=== PATIENT | female | born 1955 | race Caucasian/White ===

== ENCOUNTER 2016-07-08 20:04 | Observation (INO) | payer MEDICAID, OTHER ==
[~2016-07-08] VITALS: Ht 165.1 cm; Wt 110.9 kg
[~2016-07-08 20:04] MED LIST: BACL20TA PO; BPR150TCR PO; CITA40TA PO; EPIN0.3P2 IM; FLUT10.62 IH; NAPR500T PO; PRAM0.122 PO; PRAZ5CAP2 PO; ZOC20 PO; [UNRECOGNIZED DRUG - OTHER]
[2016-07-08 20:07] VITALS: BP 141/58; PULSE 77; RESP 21; O2SAT 94
--- NOTE | 2016-07-08 20:09 | ED.REPORT ---
HPI-Chest Pain 40 and Over Date of Service Jul 08, 2016 ED Provider: Daniel Chatman MD The patient is a 60 year old female with history of diastolic congestive heart failure, emphysema on Advair, stomach ulcers, and GERD, who presents to the emergency department by EMS for chest pain that began suddenly 2 hours ago after eating. The pain lasted for about 30 minutes. The pain was located to her epigastric region and radiated through to her back. She also experienced nausea and shortness of breath. She was given 324 mg aspirin by medics en route. Her pain has been intermittent since arriving to the emergency department. On the she was seen in the ED at [facility], diagnosed with a heart attack, and was transferred to [facility]. She had a cardiac catheterization and was told it was normal. She did not have any cardiac stents placed. Her current pain is not similar to when she was recently admitted. She is on 3L oxygen at home. Nursing Notes Stated Complaint: RESOLVED CHEST PAIN Chief Complaint: Chest Pain Nursing Notes Reviewed: Yes Allergies: Coded Allergies: Pentazocine Lactate (Verified Allergy, Severe, hallucinations and required paddles in surgery , 07/08/16) codeine (Verified Allergy, Severe, n&V, 07/08/16) meperidine HCl (Verified Allergy, Severe, n/v, 07/08/16) venom-honey bee (Verified Allergy, Unknown, 07/08/16) Scheduled Aspirin Chew (Aspirin Chew) 81 Mg Chew 81 MG PO QAM Baclofen (Baclofen) 10 Mg Tablet 10 MG PO BID Budesonide/Formoterol 160-4.5 mcg Inh (Symbicort 160-4.5 mcg Inh) 120 Puff Inhaler 2 PUFF INHALATION HS Citalopram (Citalopram) 40 Mg Tablet 40 MG PO QAM Fluticasone/Salmeterol (Advair 250-50 Diskus) 60 Puff/Inh Disk 1 PUFF IH BID Furosemide (Furosemide) 20 Mg Tab 20 MG PO QAM Hydralazine (Hydralazine) 10 Mg Tablet 10 MG PO TID Losartan Potassium (Losartan Potassium) 25 Mg Tablet 25 MG PO QAM Metoprolol Tartrate (Metoprolol Tartrate) 25 Mg Tablet 25 MG PO BID Pramipexole Dihydrochloride (Mirapex) 0.125 Mg Tablet 0.125 MG PO QAM Prednisone (PredniSONE) 10 Mg Tablet 10 MG PO QAM Simvastatin (Simvastatin) 40 Mg Tablet 40 MG PO HS Tiotropium [place] (Spiriva Respimat) 1.25 Mcg/Actuation Mist.inhal 5 MCG IH QAM Scheduled PRN Albuterol HFA (Proair HFA) 8.5 Gm Hfa.aer.ad 2 PUFFS INHALATION Q4H PRN PRN For Shortness of Breath Clotrimazole (Itch Relief) 1 % Cream..g. 1 APPLIC TP BID PRN PRN RASH/YEAST Diazepam (Diazepam) 5 Mg Tablet 5-10 MG PO HS PRN PRN INSOMNIA/ANXIETY Epinephrine (Epipen 2-Riley) 0.3 Mg/0.3 Ml Auto.injct 0.3 MG IJ DIRECTED PRN PRN For Anaphyllaxis Levalbuterol Tartrate (Xopenex Hfa) 15 Gm Hfa.aer.ad 2 PUFF IH Q6H PRN PRN For Shortness of Breath Nabumetone (Nabumetone) 750 Mg Tablet 750 MG PO BID PRN PRN For Pain General Time Seen by MD: 20:05 Chief Complaint Chest pain Hx Obtained From: Patient, EMS Arrived By: Ambulance Sudden in Onset?: Yes Onset Occurred: 1 - 4 hours ago Symptom Duration: Since onset Quality: Painful Radiation: : Back Migration/Movement: Reports: None Severity: Current: Mild Severity: Maximum: Moderate Recent Healthcare: Recent doctor visit, Recent hospitalization Similar Sx Previous: Yes Past Medical History Past Medical History Diastolic congestive heart failure Emphysema Recent admission for elevated troponin with a normal cardiac catheterization GERD Stomach ulcers Past Surgical History Cardiac catheterization Colon resection Bilateral knee replacements Hiatal hernia repair Lysis of adhesions Family History Noncontributory Social History Other Social History: Good social support, Local resident Ambulatory Status Independent Review of Systems Respiratory: Reports: Shortness of breath Cardiovascular: Reports: Chest pain GI: Reports: Nausea Musculoskeletal: Reports: Back pain Complete sys rev & neg: except as marked. Physical Exam Initial Vital Signs Vital Signs (First) Date Time Temp Pulse Resp B/P Pulse Ox O2 Delivery O2 Flow Rate FiO2 07/08/16 20:07 36.7 77 21 141/58 94 Nasal Cannula 2 Initial VS: Reviewed Head / Eyes: Atraumatic, Normocephalic, PERRL ENT: Mucous membranes moist, Conjunctiva normal, No scleral icterus Neck: Supple, Non-tender, Full range of motion Lymphatic: No lymphadenopathy Extremities: Vascular intact, Neuro intact Skin: Warm, Dry, No cyanosis Neurologic: Alert, Oriented, Nonfocal Psychiatric: Mood/affect normal, Behavior normal, Normal thought content General/Constitutional: Awake, Alert, Cooperative Respiratory / Chest: No respiratory distress, No chest tenderness, No chest wall deformity Poor air movement throughout both lung steward with prolonged expiratory phase. No crackles or focal findings. Abdomen: Soft, No guarding, No rebound, BS normoactive, No distention, No hernia, No palpable mass, No pulsatile mass Tenderness/Guarding/Rebound: Positive: Tender epigastric Lower Extremity / Pelvis / MS: No swelling, Non-tender, Neurologic intact, Vascular intact, No edema Bilateral well healed knee replacement scars. Interpretation & Diagnostics Lab Results Interpretation Result Diagram: 07/08/16202307/08/162023 Test 07/08/16 20:24 White Blood Count 15.0th/mm3 (3.8-10.1) Red Blood Count 3.93mil/mm3 (3.90-5.20) Hemoglobin 12.7g/dL (12.0-15.6) Hematocrit 39.2% (35.0-46.0) Mean Corpuscular Volume 99.7fL (81-100) Mean Corpuscular Hemoglobin 32.3pg (27.0-35.0) Mean Corpuscular Hemoglobin Concent 32.4% (32.0-37.0) Red Cell Distribution Width 13.6% (12.3-15.4) Platelet Count 259bil/L (150-400) Neutrophils (%) (Auto) 72.6% (40-74) Lymphocytes (%) (Auto) 21.3% (14-46) Monocytes (%) (Auto) 5.1% (4-12) Eosinophils (%) (Auto) 0.4% (0-5) Basophils (%) (Auto) 0.1% (0-3) Sodium Level 136mEq/L (134-144) Potassium Level 3.9mEq/L (3.5-5.2) Chloride Level 97mEq/L (97-108) Carbon Dioxide Level 24mmol/L (18-29) Blood Urea Nitrogen 26mg/dL (8-27) Creatinine 1.27mg/dL (0.57-1.00) Estimat Glomerular Filtration Rate 61mL/min (>59) Glucose Level 125mg/dL (60-99) Calcium Level 9.4mg/dL (8.5-10.1) Magnesium Level 2.2mg/dL (1.6-2.6) Total Bilirubin 0.4mg/dL (0.0-1.2) Aspartate Amino Transf (AST/SGOT) 20U/L (0-50) Alanine Aminotransferase (ALT/SGPT) 25U/L (0-32) Alkaline Phosphatase 55U/L (25-165) Troponin T 0.010ug/L (0.0-0.011) Pro-B-Type Natriuretic Peptide 155.4pg/mL (0-287) Total Protein 6.9g/dL (6.4-8.4) Albumin 3.9g/dL (3.4-5.0) Procalcitonin 0.05ng/mL (0.00-0.08) Hold Braden Top Tube Received (Received) ECG Interpretation ECG Interpretation: Sinus rhythm with a rate of 76 bpm Normal axis Normal intervals Inferior Q waves present No acute ST changes No acute T wave abnormalities No previous EKGs available for comparison Time: 20:05 Interpreted by: ED physician X-Ray Chest Interpretation Chest Xray Interpretation: IMPRESSION: Normal for age. Source of chest pain is not seen. Dictated by: Donavon Kimbrough M.D. on 07/08/2016 at 20:32 Interpretation / Wet Read by: Interpret - Radiologist Re-Eval/Medical Decision Med Decision/Clinical Course The patient is a 60 year old female with history of diastolic congestive heart failure, emphysema on Advair, stomach ulcers, and GERD, who presents to the emergency department by EMS for chest pain that began suddenly 2 hours ago after eating. The pain lasted for about 30 minutes. The pain was located to her epigastric region and radiated through to her back. She also experienced nausea and shortness of breath. She was given 324 mg aspirin by medics en route. Her pain has been intermittent since arriving to the emergency department. On the she was seen in the ED at [facility], diagnosed with a "heart attack", and was transferred to [facility]. She had a cardiac catheterization and was told it was "normal". She did not have any cardiac stents placed. Her current pain is not similar to when she was recently admitted. She is on 3L oxygen at home at night. Upon arrival to the emergency department the patient is afebrile and hemodynamically stable. She reported active chest pain which resolved after being given supplemental nitroglycerin. Initial EKG was obtained and interpreted by myself as documented above. CXR: Obtained, reviewed and interpreted by myself shows no evidence of infiltrates, effusions or pneumothorax. Cardiac and mediastinal silhouette normal. No bony or soft tissue abnormalities. Initial troponin was negative and CBC was notable only for leukocytosis of 15. CMP was unremarkable. Multiple attempts were made to obtain records from [facility] however records were not sent. I was unable to verify findings of the patient's cardiac catheterization. That being said she is relatively high risk for cardiac standpoint and her chest pain did resolve with nitroglycerin further raising some concern that this may be cardiac in etiology. Additionally, she has poor air movement throughout both lung steward with quite a bit of wheezing. I gave him 40 mg of oral prednisone as well as 2 DuoNeb treatments. She was ambulated thereafter on pulse oximetry and had desaturation into the mid to high 80s. Overall presentation not suggestive of pulmonary embolism. She is without tachycardia, pleuritic chest pain. Given findings on auscultation of her lungs my suspicion that this represents PE is very low. Patient was admitted to the hospitalist service for management of her COPD exacerbation and further ACS rule out. We will continue to obtain her records from [facility]. Source of Hx: Old records, EMS Time of Eval: 21:00 Re-Evaluation/Progress Note: The patient was at 94 % on room air. After walking for 2 minutes on room air her sats dropped to a low of 88. Will admit the patient. Consultation : Referral / Consult Name: Yonathan Rodney MD Consulted With: Hospitalist Requested Call at: 22:01 Call Returned at: 22:16 Package Handler: Will see patient, Agrees with eval, Agrees with plan, Accepts admit Counseled Regarding: Diagnosis, Lab results, Need for admission Discharge & Departure Primary Impression: Chest pain Chest pain type: unspecified Qualified Code: R07.9 - Chest pain, unspecified Additional Impressions: COPD exacerbation Hypoxia Disposition: ADMITTED TO HOSPITAL Discharge Condition All VS Reviewed: Yes Condition: Stable Referrals: Ralph Mccann MD (PCP) Munaibrosa elena Attestation Portions of this note were transcribed by Melissa Figueroa. I, Dr. Chatman personally performed the history, physical exam and medical decision-making; I reviewed and confirmed the accuracy of the information in the transcribed note. Signed by: Leonel Pérez, 07/08/2016 at 2240. copies to: Ralph Mccann MD, Beck O MD Jul 08, 2016 20:09 Melissa Figueroa Jul 08, 2016 20:14
--- NOTE | 2016-07-08 20:33 | DRSVH ---
PROCEDURE: X-RAY CHEST ONE VIEW, PORTABLE ([id number]) INDICATIONS: CHEST PAIN RESOLVED TECHNIQUE: One view of the chest was acquired. COMPARISON: None. FINDINGS: Surgical changes and devices: None. Lungs and pleura: No pleural effusions or pneumothorax. Lungs are clear. Mediastinum: Mediastinal contours appear normal. Heart size is normal. Bones and chest wall: No suspicious bony lesions. Overlying soft tissues appear unremarkable. IMPRESSION: Normal for age. Source of chest pain is not seen. Dictated by: Donavon Kimbrough M.D. on 07/08/2016 at 20:32 Approved by: Donavon Kimbrough M.D. on 07/08/2016 at 20:32
[2016-07-08 20:39] LABS: BASOPHILS % (AUTO) 0.1 % (0-3); EOSINOPHILS % (AUTO) 0.4 % (0-5); MONOCYTES % (AUTO) 5.1 % (4-12); Mean Corpuscular Hemoglobin 32.3 pg (27.0-35.0); Mean Corpuscular Volume 99.7 fL (81-100); NEUTROPHILS % (AUTO) 72.6 % (40-74); Platelet Count 259 bil/L (150-400)
[2016-07-08] MEDS ORDERED: Albuterol-Ipratropium 3 mL Inhalation Solution NEB ONE (20:50)
[2016-07-08] MEDS ORDERED: predniSONE 20 mg Tablet PO ONE (20:50)
[2016-07-08 20:59] LABS: TROPONIN T 0.01 ug/L (0.0-0.011)
[2016-07-08 21:10] LABS: Magnesium 2.2 mg/dL (1.6-2.6)
[2016-07-08] MEDS ORDERED: Ondansetron 2 mg/mL 2 mL Inj ONE (21:21)
[2016-07-08 21:25] VITALS: BP 109/41; PULSE 80; RESP 20; O2SAT 94
[2016-07-08 21:42] VITALS: PULSE 74; RESP 22; O2SAT 94
[2016-07-08] MEDS ORDERED: Alum-Mag Hydrox-Simeth 30 mL Suspension PO PRN (22:00)
[2016-07-08] MEDS ORDERED: Ondansetron 2 mg/mL 2 mL Inj IVPUSH PRN ×2 (22:00→22:55)
[2016-07-08 22:03] VITALS: BP 127/61; PULSE 74; RESP 22; O2SAT 92
[2016-07-08] MEDS ORDERED: SIMV20TA4 PO (22:52)
[2016-07-08] MEDS ORDERED: EPIN0.3P2 IJ (22:52)
[2016-07-08] MEDS ORDERED: BACL20TA PO (22:52)
[2016-07-08] MEDS ORDERED: CITA40TA13 PO (22:52)
[2016-07-08] MEDS ORDERED: Polyethylene Glycol (PEG) 17 Gm Powder PO PRN (22:55)
[2016-07-08] MEDS ORDERED: DIAZ5TAB3 PO (23:04)
[2016-07-08] MEDS ORDERED: ADV250INH IH (23:04)
[2016-07-08] MEDS ORDERED: TRAM50TA2 PO (23:04)
[2016-07-08] MEDS ORDERED: BACL10TA PO (23:04)
[2016-07-08] MEDS ORDERED: FUR20 PO (23:04)
[2016-07-08] MEDS ORDERED: TIOT18CA3 IH (23:04)
[2016-07-08] MEDS ORDERED: LOSA25TA21 PO (23:04)
[2016-07-08] MEDS ORDERED: PRAM0.122 PO (23:04)
[2016-07-08] MEDS ORDERED: CLOT15CR66 TP (23:04)
[2016-07-08] MEDS ORDERED: ASPI325T32 PO (23:04)
[2016-07-08] MEDS ORDERED: AMIT10TA6 PO (23:04)
[2016-07-08] MEDS ORDERED: ALBU8.5H2 INHALATION (23:04)
[2016-07-08 23:09] VITALS: BP 126/47; PULSE 71; RESP 24; O2SAT 93
[2016-07-08] MEDS ORDERED: ASPI81TA3 PO (23:15)
[2016-07-08] MEDS ORDERED: SYMINH INHALATION (23:17)
[2016-07-08] MEDS ORDERED: LEVA15HF5 IH (23:17)
[2016-07-08] MEDS ORDERED: METO25TA6 PO (23:20)
[2016-07-08] MEDS ORDERED: PRE10 PO (23:20)
[2016-07-08] MEDS ORDERED: HYDR-3938 PO (23:20)
[2016-07-08] MEDS ORDERED: SIMV40TA5 PO (23:21)
[2016-07-08] MEDS ORDERED: TIOT4MIS5 IH (23:22)
[2016-07-08] MEDS ORDERED: NABU750T PO (23:23)
[2016-07-08] MEDS ORDERED: [UNRECOGNIZED DRUG - OTHER] (23:26)
[2016-07-08 23:41] VITALS: PULSE 63
[2016-07-08] MEDS: 0.9% Sodium Chloride 1,000 ML IV SCH (23:54)
[2016-07-08] MEDS: Heparin 5,000 Unit/mL Inj SUBQ SCH (23:54)
[2016-07-09] VITALS (9 sets, daily range): BP systolic 144–162; BP diastolic 60–71; PULSE 57–71; RESP 18–20; O2SAT 92–97
--- NOTE | 2016-07-09 00:05 | NUR ---
Admission Note Pt admitted to [facility] from ER on stretcher at 2335, alert and orientedx3, pleasant, pt states chest pain resolved, denies cough/N/V/fever/chills/any pain. Stood up and ambulated to bed on arrival, SOB with activities,breathing fine when lying in bed per pt. gait steady,denies dizziness,vertigo. Moderately decreased lung sounds bilaterally, no wheezes or crackles noted. HR regular, no murmur, Tele: SR 62 per central processing technician. Abdomen soft, non tender, slightly hypoactive BT, no edema at all extremities. IV place at ER occluded, new IV placed by charge nurse. NS 100ml running, call light oriented to pt, NPO informed for possible stress test or procedure (unknown yet), pt informed to let RN know immediately should chest pain/discomfort occur. Care ongoing. BP 162/72 RR24, SPO2 96% on O2 2l per nc, MP30 for monitoring SPO2.
--- NOTE | 2016-07-09 02:31 | PCM.HPMED ---
Subjective Date of Service Jul 08, 2016 Primary Provider: Admitting Physician: Yonathan Rodney MD Primary Care Physician: Ralph Mccann MD Attending Physician: Yonathan Rodney MD Admit Status: From the Emergency Department Chief Complaint: Chest pain History of Present Illness: Patient is a 60-year-old female and current smoker with a history of emphysema, diastolic CHF, GERD, gastric ulcers and recent admission to [facility] in [place] for elevated troponin with a normal cardiac catheterization who presented to the ED via EMS with the complaint of sudden and severe substernal/ epigastric chest pain that occurred at rest approximately 2 hours after dinner and radiated to her back. She states that she took some of her omeprazole without relief and when the pain persistent for more than 30minutes she called 911. Associated symptoms include nausea, one episode of vomiting, shortness of breath, and dizziness. She states that her pain was similar to the pain she experienced prior to her admission to [facility] last month but was much more severe. She endorses the diagnosis of NSTEMI on 06/25/16 that resulted in transfer from [facility] to [facility] where she underwent a cardiac catheterization. She states that she developed a hematoma at the cath sight but reports she was told the cardiac cath was negative and no stents were placed. She continues to smoke daily but is trying to cut back. Of note, she reports a persistent and productive cough for the past several weeks for which she was started on oral prednisone and a Z-pack as an outpatient but has not yet completed. In the ED, vitals were temperature of 36.7C, BP 141/58, HR 77, RR 21, SpO2 94% on 2L nasal cannula. Labs significant for troponin negative x1, proBNP 155.4, leukocytosis with a WBC of 15.0, Hgb/Hct 12.7/39.2, sodium 136, potassium 3.9, chloride 97, bicarb 24, BUN 26, creatinine 1.27, serum glucose 125, magnesium 2.2, and negative procalcitonin. EKG showing sinus rhythm w/ rate of 76, no acute ST changes. Chest xray without acute cardiopulmonary process. She received 324mg of aspirin, 40mg of oral prednisone and SL nitro x1. Review of Systems: A comprehensive review of systems was conducted with the patient and found to be negative except as above in the History of Present Illness. Allergies Coded Allergies: Pentazocine Lactate (Verified Allergy, Severe, hallucinations and required paddles in surgery , 07/08/16) codeine (Verified Allergy, Severe, n&V, 07/08/16) meperidine HCl (Verified Allergy, Severe, n/v, 07/08/16) venom-honey bee (Verified Allergy, Unknown, 07/08/16) Home Medications Aspirin Chew 81 MG PO QAM Baclofen 10 MG PO BID Budesonide/Formoterol 160-4.5 mcg Inh (2 PUFF INHALATION HS Citalopram 40 MG PO QAM Fluticasone/Salmeterol 1 PUFF IH BID Furosemide 20 MG PO QAM Hydralazine 10 MG PO TID Losartan Potassium 25 MG PO QAM Metoprolol Tartrate (25 MG PO BID Pramipexole Dihydrochloride 0.125 MG PO QAM Hextcktpkg75 MG PO QAM Simvastatin ( 40 MG PO HS Tiotropium [place] (5 MCG IH QAM Scheduled PRN Albuterol HFA 2 PUFFS INHALATION Q4H PRN For Shortness of Breath Clotrimazole 1 APPLIC TP BID PRN RASH/YEAST Diazepam 5-10 MG PO HS PRN INSOMNIA/ANXIETY Epinephrine 0.3 MG IJ DIRECTED PRN PRN For Anaphyllaxis Levalbuterol Tartrate 2 PUFF IH Q6H PRN For Shortness of Breath Nabumetone 750 MG PO BID PRN For Pain PMH Diastolic congestive heart failure Emphysema Recent admission for elevated troponin with a normal cardiac catheterization Hyperlipidemia GERD Gastric ulcers Sleep apnea Osteoporosis Depression Colon polyps Surgical History Cardiac catheterization Colon resection Abdominal hernia repair Knee surgery w/ donor bone and hardware Abdominal surgeries from [facility], 1974, 76, 76 Bilateral knee replacement Left breast biopsy-benign Lysis of adhesions Hardware removal from knee Family History No family hx of heart disease, colon cancer. Mother- breast cancer Uncle- leukemia, stroke Social History Hx Alcohol Use: No Hx Substance Use: No Hx Tobacco Use: Yes (1ppd 40yrs currently endorses 5 cig/day) Smoking Status: Current Every Day Smoker Living Arrangement: with Family Exam Vital Signs Vital Sign - Last Date Time Temp Pulse Resp B/P Pulse Ox O2 Delivery O2 Flow Rate FiO2 07/08/16 23:09 71 24 126/47 93 Room Air 07/08/16 22:03 2 07/08/16 20:07 36.7 Exam General: Obese, female propped up in bed in no acute distress, appropriately interactive HEENT: Normocephalic, atraumatic. PERRLA, moist mucosa. no scleral icterus. Neck: No JVD or bruits. No lymphadenopathy or thyromegaly. Cardiovascular: RRR with no murmurs, rubs, or gallops. Pulmonary: Poor respiratory effort, breath sounds diminished bilaterally but grossly clear to auscultation with no crackles, wheezes, or rhonchi. Abdomen: Bowel tones present. Soft, obese, nontender, nondistended. No hepatosplenomegaly or masses appreciated. Extremities: Tenderness to palpation at left femoral cath site w/firm nodule, fading ecchymosis. No clubbing, cyanosis, or edema. Skin: Normal temperature, turgor, and texture; no rash, or ulcerations. Neurological: CN II-XII grossly intact. No focal deficits. Normal muscle strength, tone, and bulk. Psychiatric: Alert and oriented x3. Normal mood and affect. Lab and Diagnostics Labs Laboratory Tests Test 07/08/16 20:24 White Blood Count 15.0th/mm3 (3.8-10.1) Red Blood Count 3.93mil/mm3 (3.90-5.20) Hemoglobin 12.7g/dL (12.0-15.6) Hematocrit 39.2% (35.0-46.0) Mean Corpuscular Volume 99.7fL (81-100) Mean Corpuscular Hemoglobin 32.3pg (27.0-35.0) Mean Corpuscular Hemoglobin Concent 32.4% (32.0-37.0) Red Cell Distribution Width 13.6% (12.3-15.4) Platelet Count 259bil/L (150-400) Neutrophils (%) (Auto) 72.6% (40-74) Lymphocytes (%) (Auto) 21.3% (14-46) Monocytes (%) (Auto) 5.1% (4-12) Eosinophils (%) (Auto) 0.4% (0-5) Basophils (%) (Auto) 0.1% (0-3) Sodium Level 136mEq/L (134-144) Potassium Level 3.9mEq/L (3.5-5.2) Chloride Level 97mEq/L (97-108) Carbon Dioxide Level 24mmol/L (18-29) Blood Urea Nitrogen 26mg/dL (8-27) Creatinine 1.27mg/dL (0.57-1.00) Estimat Glomerular Filtration Rate 61mL/min (>59) Glucose Level 125mg/dL (60-99) Calcium Level 9.4mg/dL (8.5-10.1) Magnesium Level 2.2mg/dL (1.6-2.6) Total Bilirubin 0.4mg/dL (0.0-1.2) Aspartate Amino Transf (AST/SGOT) 20U/L (0-50) Alanine Aminotransferase (ALT/SGPT) 25U/L (0-32) Alkaline Phosphatase 55U/L (25-165) Troponin T 0.010ug/L (0.0-0.011) Pro-B-Type Natriuretic Peptide 155.4pg/mL (0-287) Total Protein 6.9g/dL (6.4-8.4) Albumin 3.9g/dL (3.4-5.0) Procalcitonin 0.05ng/mL (0.00-0.08) Hold Braden Top Tube Received (Received) Result Diagram: 07/08/16202307/08/162023 X-Rays, CTs and MRIs X-RAY CHEST ONE VIEW, PORTABLE (Dictated by: Donavon Kimbrough M.D. on 07/08/2016 at 20:32) FINDINGS: -Surgical changes and devices: None. -Lungs and pleura: No pleural effusions or pneumothorax. Lungs are clear. -Mediastinum: Mediastinal contours appear normal. Heart size is normal. -Bones and chest wall: No suspicious bony lesions. Overlying soft tissues appear unremarkable. IMPRESSION: Normal for age. Source of chest pain is not seen. Approved by: Donavon Kimbrough M.D. on 07/08/2016 at 20:32 Assessment & Plan 60 y/o female with a history of emphysema, diastolic CHF, GERD, gastric ulcers and recent admission to [facility] in [place] for elevated troponin with a normal cardiac catheterization who presented to the ED via EMS with the complaint of sudden and severe substernal/epigastric chest pain that occurred at rest approximately 2 hours after dinner and radiated to her back. Admitted for evaluation of chest pain and probable COPD exacerbation. 1. Chest pain, r/o ACS, present on admission. Active. -Pt reports hx of recent NSTEMI with negative cath and hospital admission to [facility] in [place]. -EKG showing sinus rhythm w/ rate of 76, no acute ST changes. Chest xray without acute cardiopulmonary process -Troponin negative x1 -in ED: s/p SL nitro x1, oral aspirin 325mg -admitted to [facility] with telemetry -continue statin, aspirin -metoprolol held for possible cardiac stress test in am -SL nitro prn and IV morphine prn as long as BP tolerates -Trend troponin q6h -NPO for possible procedures 2. Probable COPD exacerbation, present on admission. Active. -Pt 40 pack-year smoking history, current every day smoker. Reports diagnosis of emphysema, on triple-inhaler therapy and 3L home O2 at night. Recent outpatient evaluation for URI w/ active oral prednisone and Z-pack. -Tachypneic and hypoxic in the ED with O2 sats dropping into the low 80s with ambulation. CXR w/o focal consolidation or obvious acute process. -Afebrile, WBC 15.0 w/o a left shift, procalcitonin negative -in ED: s/p dose of rocephin/ azithromycin and oral prednisone -Duonebs q4h, albuterol q2h prn -Prednisone 40mg PO daily x5 days -Continue supplemental O2, maintain sats 88-92% -Will hold antibiotics and repeat CBC, procalcitonin in the am -Sputum culture ordered 3. Hx of NSTEMI, present on admission. Active. -Pt reports recent admission to [facility] in [place] for elevated troponin with a normal cardiac catheterization. -Day team to follow up with outside records, [facility] -continue home aspirin, statin, losartan, hydralazine -held metoprolol for possible stress test in am 4. Chronic GERD, present on admission. Presumed stable. -hx of gastric ulcers 5. Hx of diastolic CHF, present on admission. Presumed stable. -Clinically does not appear hypervolemic, no signs/symptoms of acute exacerbation. -Echocardiogram ordered -Continue home furosemide -Metoprolol held, as above. -Day team to resume when appropriate 6. Chronic hypertension, present on admission. Presumed stable. - BP 141/58 - continue home meds, as above. 7. Hx of depression and anxiety, present on admission. Presumed stable. -continue home citalopram 8. Chronic hyperlipidemia, present on admission. Presumed stable. - continue home statin FEN: NPO for possible procedures, IVFs- NS at 100mls/hr. GI Prophylaxis: not indicated, will continue home omeprazole for chronic GERD DVT Prophylaxis: Sub-q Heparin, 5,000units Q8h PRN: Acetaminophen-fever/headache/mild/moderate pain Antiemetics, as needed Bowel regimen, as needed. Disposition: Patient admitted under inpatient status with expected length of stay > 2 midnights for severity of present symptoms, complexities of treatment plan and risk for adverse event. Pain Evaluation: Adequate Pain Control VTE Prophylaxis Indicated: Meets Criteria for Anticoag Therapy VTE Prophylaxis: Sub-Q Heparin (Unfractionated) Resuscitation Status: CPR: Attempt Resuscitation Attending Statement The patient was seen and examined together with Dr. Fleming on 07/08/2016 and I have added additional information to the note above. General: No acute distress. Awake, alert. Head: Normocephalic, atraumatic. Eyes: White sclera. Conjunctiva non-injected. Mouth & Throat: No Bleeding. No erythema, lesions, exudates visualized. Neck: No tender adenopathy. Trachea midline. Respiratory: dec breath sounds with mild exp wheeze b/l. moving air all lung steward. Cardiovascular: S1, S2. Regular rate and rhythm without murmurs, rubs or gallops. Pulses 2+ equal bilaterally. Abdomen: Normal bowel sounds x4 quadrants. Soft, non-tender, non-distended. Extremities: Intact. no joint effusions. no lower extremity tenderness, swelling , erythema or increased warmth. Skin: Intact, no lesions, no rash. Neurologic: Awake, alert, oriented x3. No focal deficits. Psychiatric: Appropriate mood and affect. Cooperative. chest pain chest pain free now. serial troponins, ekg. echocardiogram. may need to f/u with cardiology in am, obtain recent records. copd exacerbation. diminished breath sounds with minimal exp wheeze. breathing rx, steroids. cont to monitor. Debra Fleming DO Jul 08, 2016 23:20 Yonathan Rodney MD Jul 09, 2016 02:37
--- NOTE | 2016-07-09 04:20 | NUR ---
Code Status DNR/DNI DNR/DNI verified with pt, night resident [place] notified.
--- NOTE | 2016-07-09 07:11 | NUR ---
O2 Titration Pt COPD with home O2 2l in day,3l overnight for 5 years per pt. Titrate O2 from 2 to 1 L per oxymask with carefully monitoring O2 level via MP30, SPO2 remains 96-97% with titration, pt SOB stable,alert and orientedx3.
[2016-07-09 07:12] LABS: BASOPHILS % (AUTO) 0.1 % (0-3); EOSINOPHILS % (AUTO) 0 % (0-5); MONOCYTES % (AUTO) 2.2 % (4-12); Mean Corpuscular Hemoglobin 32.7 pg (27.0-35.0); Mean Corpuscular Volume 99.7 fL (81-100); NEUTROPHILS % (AUTO) 85.4 % (40-74); Platelet Count 219 bil/L (150-400)
[2016-07-09] MEDS: Albuterol-Ipratropium 3 mL Inhalation Solution NEB SCH ×3 (07:47→16:20)
[2016-07-09] MEDS ORDERED: Fluticasone-Salmeterol 500-50 Inhaler INHALATION SCH (08:30)
[2016-07-09] MEDS ORDERED: predniSONE 20 mg Tablet PO SCH (08:30)
[2016-07-09] MEDS: 0.9% Sodium Chloride 1,000 ML IV SCH (08:52)
[2016-07-09] MEDS: Heparin 5,000 Unit/mL Inj SUBQ SCH ×2 (09:33→16:30)
--- NOTE | 2016-07-09 10:07 | DRSVH ---
PROCEDURE: X-RAY CHEST, TWO VIEWS ([id number]) INDICATIONS: Hypoxia TECHNIQUE: 2 views of the chest were acquired. COMPARISON: [facility], CR, XR CHEST 1VW (PORTABLE), 07/08/2016, 20:03. FINDINGS: Surgical changes and devices: None. Lungs and pleura: There is diffuse interstitial prominence. There is a small right pleural effusion. Mediastinum: Mediastinal contours are normal. Heart size is normal. Bones and chest wall: No suspicious bony abnormalities. Soft tissues appear unremarkable. IMPRESSION: 1. Interstitial prominence and small right pleural effusion suggesting fluid overload. Dictated by: Syeda Lara M.D. on 07/09/2016 at 10:05 Approved by: Syeda Lara M.D. on 07/09/2016 at 10:06
--- NOTE | 2016-07-09 11:48 | NUR ---
Social Work: Screening Data: pt is a 60 y/o female admitted for CP/CPOD exacerbation. Pt's PCP is Dr Mccann, pt's insurance is [employer] and [facility]. EMR reviewed, no readmit score listed. No d/c planning needs anticipated at this time. MULE SPINNER will continue to follow if needs arise. Assessment: Pt who is independent at baseline. Plan: Pt will d/c home via POV when medically stable. No d/c planning needs anticipated at this time. MULE SPINNER will continue to follow if needs arise. CLAUDINE Merrill
--- NOTE | 2016-07-09 14:42 | NUR ---
Social Work: Discharge Data: Pt is on day 1 of hospitalization. EMR reviewed. D/C orders are in. No d/c planning needs anticipated at this time. SALES AND SERVICE SPECIALIST will continue to follow if needs arise. Assessment: Pt who is independent at baseline. Plan: Pt will d/c home via POV today. No d/c planning needs anticipated at this time. SALES AND SERVICE SPECIALIST will continue to follow if needs arise. CLAUDINE Merrill
--- NOTE | 2016-07-09 14:46 | PCM.DIMED ---
Discharge Instructions Date of Service Jul 09, 2016 Dates of Hospitalization Jul 08, 2016 at 22:54 Discharge Diagnosis Discharge Diagnosis Chest Pain likely due to her hiatal hernia Diet Low fat, Low Sodium, Heart Healthy Activity No restrictions, Limited until seen by PCP, Home Health Phyical Therapy, Outpatient Physical Therapy Call your provider Fever or Chills, Shortness of breath, Bleeding, Vomitting, Excessive diarrhea, Weakness (unilateral) Patient Instructions Please work on smoking cessation Please follow a heart healthy diet. Follow-up plan Follow up with Patient's therapeutic mentor Dr. Xie in [facility] on July 28 Follow up with Patient's pumonologist on July 29 as previously scheduled Follow up with PCP in 1-2 weeks for follow up Patience Hannah DO Jul 09, 2016 14:46
--- NOTE | 2016-07-09 16:16 | NUR ---
Discharge Reviewed d/c instructions with pt including care notes and new prescriptions, pt signed and given originals, copies to chart. IV d/c intact, tele removed. Pt VS stable at this time. All belongings being packed by pt for departure. RT gave pt temp O2 for transport home until home O2 provider visits pt tomorrow. Cont to monitor until pt gets picked up at approx 1700. Addendum: 07/09/16 at 1721 by MENA MUÑIZ RN pt taken off unit via WC by KARIE to car waiting below, friend to drive pt home. Temporary home O2 setup taken with her plus all belongings.
--- NOTE | 2016-07-10 05:53 | PCM.DC.MED ---
Discharge Summary Date of Service Jul 09, 2016 Dates of Hospitalization Date of Hospital Admission Jul 08, 2016 at 22:54 Date of Discharge: Jul 09, 2016 Providers: Admitting Physician: Yonathan Rodney MD Primary Care Physician: Ralph Mccann MD Attending Physician: Yonathan Rodney MD Diagnosis at Time of Discharge Diagnosis at Time of Discharge Chest Pain likely due to her hiatal hernia Procedures XRay, CTs & MRIs X-RAY CHEST ONE VIEW, PORTABLE (Dictated by: Donavon Kimbrough M.D. on 07/08/2016 at 20:32) FINDINGS: -Surgical changes and devices: None. -Lungs and pleura: No pleural effusions or pneumothorax. Lungs are clear. -Mediastinum: Mediastinal contours appear normal. Heart size is normal. -Bones and chest wall: No suspicious bony lesions. Overlying soft tissues appear unremarkable. IMPRESSION: Normal for age. Source of chest pain is not seen. Approved by: Donavon Kimbrough M.D. on 07/08/2016 at 20:32 Brief History Patient is a 60-year-old female and current smoker with a history of emphysema, diastolic CHF, GERD, gastric ulcers and recent admission to [facility] in [place] for elevated troponin with a normal cardiac catheterization who presented to the ED via EMS with the complaint of sudden and severe substernal/ epigastric chest pain that occurred at rest approximately 2 hours after dinner and radiated to her back. She states that she took some of her omeprazole without relief and when the pain persistent for more than 30minutes she called 911. Associated symptoms include nausea, one episode of vomiting, shortness of breath, and dizziness. She states that her pain was similar to the pain she experienced prior to her admission to [facility] last month but was much more severe. She endorses the diagnosis of NSTEMI on 06/25/16 that resulted in transfer from [facility] to [facility] where she underwent a cardiac catheterization. She states that she developed a hematoma at the cath sight but reports she was told the cardiac cath was negative and no stents were placed. She continues to smoke daily but is trying to cut back. Of note, she reports a persistent and productive cough for the past several weeks for which she was started on oral prednisone and a Z-pack as an outpatient but has not yet completed. In the ED, vitals were temperature of 36.7C, BP 141/58, HR 77, RR 21, SpO2 94% on 2L nasal cannula. Labs significant for troponin negative x1, proBNP 155.4, leukocytosis with a WBC of 15.0, Hgb/Hct 12.7/39.2, sodium 136, potassium 3.9, chloride 97, bicarb 24, BUN 26, creatinine 1.27, serum glucose 125, magnesium 2.2, and negative procalcitonin. EKG showing sinus rhythm w/ rate of 76, no acute ST changes. Chest xray without acute cardiopulmonary process. She received 324mg of aspirin, 40mg of oral prednisone and SL nitro x1. Hospital Course 60 y/o female with a history of emphysema, diastolic CHF, GERD, gastric ulcers and recent admission to [facility] in [place] for elevated troponin with a normal cardiac catheterization who presented to the ED via EMS with the complaint of sudden and severe substernal/epigastric chest pain that occurred at rest approximately 2 hours after dinner and radiated to her back. Admitted for evaluation of chest pain and probable COPD exacerbation. 1. Chest pain, r/o ACS, present on admission. Active. -Pt reports hx of recent NSTEMI with negative cath and hospital admission to [facility] in [place]. -EKG showing sinus rhythm w/ rate of 76, no acute ST changes. Chest xray without acute cardiopulmonary process -Troponin negative x1 -in ED: s/p SL nitro x1, oral aspirin 325mg -admitted to [facility] with telemetry -continue statin, aspirin, metoprolol -SL nitro prn and IV morphine prn as long as BP tolerates -Trend troponin q6h -- Cardiac enzymes were neg overnight. Her pain has resolved, EKG was NSR. Patient's cardiology office is contacted, spoke with her physician's partner Debbi Brannon. They feel that she has absolutely no indication for a repeat echo or stress as she just got worked up for NSTEMI 2 weeks ago. Reviewed her records from [facility] and she did not have enough blockage in her vessels for them to intevene. Echo showed no concern for HF. -- Patient has a hiatal hernia, this twinge she felt may be related to that as pt has a brief episode of little emesis after eating that did not recur. She is tolerating her diet well here. 2. Probable COPD exacerbation, present on admission. Active. -Pt 40 pack-year smoking history, current every day smoker. Reports diagnosis of emphysema, on triple-inhaler therapy and 3L home O2 at night. Recent outpatient evaluation for URI w/ active oral prednisone and Z-pack. -Tachypneic and hypoxic in the ED with O2 sats dropping into the low 80s with ambulation. CXR w/o focal consolidation or obvious acute process. -Afebrile, WBC 15.0 w/o a left shift, procalcitonin negative -in ED: s/p dose of rocephin/ azithromycin and oral prednisone -Duonebs q4h, albuterol q2h prn -Continue supplemental O2, maintain sats 88-92% -Patient was already on a taper prednisone dose at home, we asked her to complete it. - She has no leukocytosis, clinically no signs of infection. 3. Hx of NSTEMI, present on admission. Active. -Pt reports recent admission to [facility] in [place] for elevated troponin with a normal cardiac catheterization. -Records from [facility] were obtained. -continue home aspirin, statin, losartan, hydralazine -held metoprolol for possible stress test in am 4. Chronic GERD, present on admission. Presumed stable. -hx of gastric ulcers 5. Hx of diastolic CHF, present on admission. Presumed stable. -Clinically does not appear hypervolemic, no signs/symptoms of acute exacerbation. -Continue home furosemide 6. Chronic hypertension, present on admission. Presumed stable. - BP 141/58 - continue home meds, as above. 7. Hx of depression and anxiety, present on admission. Presumed stable. -continue home citalopram 8. Chronic hyperlipidemia, present on admission. Presumed stable. - continue home statin DVT Prophylaxis: Sub-q Heparin, 5,000units Q8h PRN: Acetaminophen-fever/headache/mild/moderate pain Antiemetics, as needed Bowel regimen, as needed. Exam Vital Signs (Last) Date Time Temp Pulse Resp B/P Pulse Ox O2 Delivery O2 Flow Rate FiO2 07/09/16 12:19 63 20 92 Nasal Cannula 1.00 07/09/16 09:59 36.4 144/71 Exam General: NAD HEENT: NCAT Eyes: [place] conjunctivae. No ptosis, PERRL Neck: No masses, trachea midline, no thyromegaly Lungs: CTA with normal respiratory effort CV: RRR, no murmurs/rubs/gallops, GI: Soft, non-tender with no hepatosplenomegaly MSK: Normal gait and station, no digital cyanosis Skin: Warm and dry. No rash, lesions or ulcers Psych: A&O X3, with appropriate affect Test 07/08/16 20:24 07/09/16 06:45 Magnesium Level 2.2mg/dL (1.6-2.6) Pro-B-Type Natriuretic Peptide 155.4pg/mL (0-287) Procalcitonin 0.05ng/mL (0.00-0.08) Hold Braden Top Tube Received (Received) White Blood Count 10.3th/mm3 (3.8-10.1) Red Blood Count 3.92mil/mm3 (3.90-5.20) Hemoglobin 12.8g/dL (12.0-15.6) Hematocrit 39.1% (35.0-46.0) Mean Corpuscular Volume 99.7fL (81-100) Mean Corpuscular Hemoglobin 32.7pg (27.0-35.0) Mean Corpuscular Hemoglobin Concent 32.7% (32.0-37.0) Red Cell Distribution Width 13.7% (12.3-15.4) Platelet Count 219bil/L (150-400) Neutrophils (%) (Auto) 85.4% (40-74) Lymphocytes (%) (Auto) 11.9% (14-46) Monocytes (%) (Auto) 2.2% (4-12) Eosinophils (%) (Auto) 0% (0-5) Basophils (%) (Auto) 0.1% (0-3) Sodium Level 142mEq/L (134-144) Potassium Level 4.5mEq/L (3.5-5.2) Chloride Level 105mEq/L (97-108) Carbon Dioxide Level 24mmol/L (18-29) Blood Urea Nitrogen 23mg/dL (8-27) Creatinine 1.00mg/dL (0.57-1.00) Estimat Glomerular Filtration Rate 81mL/min (>59) Glucose Level 139mg/dL (60-99) Calcium Level 9.3mg/dL (8.5-10.1) Total Bilirubin 0.3mg/dL (0.0-1.2) Aspartate Amino Transf (AST/SGOT) 15U/L (0-50) Alanine Aminotransferase (ALT/SGPT) 22U/L (0-32) Alkaline Phosphatase 52U/L (25-165) Troponin T < 0.010ug/L (0.0-0.011) Total Protein 6.1g/dL (6.4-8.4) Albumin 3.8g/dL (3.4-5.0) Triglycerides Level 186mg/dL (0-149) Cholesterol Level 204mg/dL (100-199) LDL Cholesterol, Calculated 94.800mg/dL (0-99) VLDL Cholesterol 37.200mg/dL HDL Cholesterol 72mg/dL (>39) Cholesterol/HDL Ratio 2.83 (0.0-4.4) Discharge Medications Discharge Medications Aspirin Chew (Aspirin Chew) 81 Mg Chew 81 MG PO QAM (Reported) Baclofen (Baclofen) 10 Mg Tablet 10 MG PO BID (Reported) Budesonide/Formoterol 160-4.5 mcg Inh (Symbicort 160-4.5 mcg Inh) 120 Puff Inhaler 2 PUFF INHALATION HS (Reported) Citalopram (Citalopram) 40 Mg Tablet 40 MG PO QAM (Reported) Furosemide (Furosemide) 20 Mg Tab 20 MG PO QAM (Reported) Hydralazine (Hydralazine) 10 Mg Tablet 10 MG PO TID (Reported) Losartan Potassium (Losartan Potassium) 25 Mg Tablet 25 MG PO QAM (Reported) Metoprolol Tartrate (Metoprolol Tartrate) 25 Mg Tablet 25 MG PO BID (Reported) Pramipexole Dihydrochloride (Mirapex) 0.125 Mg Tablet 0.125 MG PO QAM (Reported ) Prednisone (PredniSONE) 10 Mg Tablet 10 MG PO QAM (Reported) Simvastatin (Simvastatin) 40 Mg Tablet 40 MG PO HS (Reported) Tiotropium [place] (Spiriva Respimat) 1.25 Mcg/Actuation Mist.inhal 5 MCG IH QAM (Reported) As needed Albuterol HFA (Proair HFA) 8.5 Gm Hfa.aer.ad 2 PUFFS INHALATION Q4H PRN PRN For Shortness of Breath (Reported) Clotrimazole (Itch Relief) 1 % Cream..g. 1 APPLIC TP BID PRN PRN RASH/YEAST ( Reported) Diazepam (Diazepam) 5 Mg Tablet 5-10 MG PO HS PRN PRN INSOMNIA/ANXIETY (Reported ) Epinephrine (Epipen 2-Riley) 0.3 Mg/0.3 Ml Auto.injct 0.3 MG IJ DIRECTED PRN PRN For Anaphyllaxis (Reported) Nabumetone (Nabumetone) 750 Mg Tablet 750 MG PO BID PRN PRN For Pain (Reported) Followup Plan Follow-up plan Follow up with Patient's aircraft air conditioning mechanic Dr. Xie in [facility] on July 28 Follow up with Patient's pumonologist on July 29 as previously scheduled Follow up with PCP in 1-2 weeks for follow up Discharge Diet: Low fat, Low Sodium, Heart Healthy Discharge Activity: No restrictions, Limited until seen by PCP, Home Health Phyical Therapy, Outpatient Physical Therapy Patient Instructions Please work on smoking cessation Please follow a heart healthy diet. Patience Hannah DO Jul 09, 2016 14:55
== END 2016-07-09 17:11 | disposition home or self-care (01) ==
LOC: SED 20:04 → INTOOBSV 22:54 → MPC 22:54
PROVIDERS: ADMIT Family Medicine; ATTEND Family Medicine
DX: R07.9 Chest pain, unspecified (principal); K44.9 Diaphragmatic hernia without obstruction or gangrene; K21.9 Gastro-esophageal reflux disease without esophagitis; I50.32 Chronic diastolic (congestive) heart failure; J43.9 Emphysema, unspecified; F17.210 Nicotine dependence, cigarettes, uncomplicated; F32.9 Major depressive disorder, single episode, unspecified; E78.5 Hyperlipidemia, unspecified; Z87.11 Personal history of peptic ulcer disease; Z99.81 Dependence on supplemental oxygen; Z79.52 Long term (current) use of systemic steroids; Z79.82 Long term (current) use of aspirin; Z96.653 Presence of artificial knee joint, bilateral; Z90.49 Acquired absence of other specified parts of digestive tract; I25.2 Old myocardial infarction
CPT/HCPCS: 36415; 71010; 71020; 80053; 80061; 83036; 83735; 83880; 84145; 84484; 85025; 93005; 94640; 94664; 96374; 99285; G0378; J1644; J2405; J7030; J7620